=== PATIENT | female | born 2000 | race Caucasian/White ===

== ENCOUNTER 2023-01-21 15:40 | Emergency (ER) | payer OTHER, SELFPAY ==
[2023-01-21 15:47] VITALS: BP 146/78; PULSE 104; RESP 18; TEMP 36.3; O2SAT 100
--- NOTE | 2023-01-21 16:16 | ED.EAR ---
HPI - Ear Problem General Chief complaint: Ear Stated complaint: Ear Pain Source: patient, family and RN notes reviewed History of Present Illness HPI Narrative: 22 yo F presents to urgent care with complaints of a runny nose, cough, and bilateral earache x 2 days. Denies any fevers, chills, chest pain, SOB, N/V/D, or sore throat. Pt states her friend was dx with bronchitis recently and didn't know if she had it. Related Data Allergies Allergy/AdvReac Type Severity Reaction Status Date / Time No Known Allergies Allergy Verified 01/21/23 15:51 Review of Systems Review of Systems: Pertinent positives and pertinent negatives per HPI. PMFSH Comments At the time of my signature, I reviewed and agree with the nursing past medical, surgical, social, and family history. There is no relevant family history pertinent to the patient complaint. Exam Narrative: GENERAL: This is a well-nourished, well-developed patient, in no apparent distress. HEAD: normocephalic, atraumatic. EYES: Sclera clear/white. Vision is grossly intact. EARS: External ears normal, auditory canals clear and without drainage, TMs normal without perforation. Hearing grossly intact. NOSE: External nose normal with no obvious nasal discharge, nares without redness, no rhinorrhea. THROAT: Mucous membranes moist, posterior pharynx clear. NECK: Neck supple, non-tender without lymphadenopathy, masses or thyromegaly. CARDIOVASCULAR: Regular rate and rhythm without murmurs, gallops, or rubs. RESPIRATORY: Clear to auscultation. Breath sounds equal bilaterally. No wheezes, rales, or rhonchi. SKIN: warm, intact with no suspicious lesions or rash, good texture and turgor. NEURO: awake, alert, and oriented to person, place and time. There were no obvious focal neurologic abnormalities. EXTREMITIES: No clubbing, cyanosis, or edema. No joint tenderness, effusion, or edema noted. BACK: Nontender without deformity or crepitus. No flank tenderness. Course Course Level of Care: Express Care Visit Vital Signs Vital signs: Vital Signs Temperature 97.4 F L 01/21/23 15:47 Pulse Rate 104 H 01/21/23 15:47 Respiratory Rate 18 01/21/23 15:47 Blood Pressure 146/78 H 01/21/23 15:47 Pulse Oximetry 100 01/21/23 15:47 Oxygen Delivery Room Air 01/21/23 15:47 Temperature 97.4 F L 01/21/23 15:47 Pulse Rate 104 H 01/21/23 15:47 Respiratory Rate 18 01/21/23 15:47 Blood Pressure 146/78 H 01/21/23 15:47 Pulse Oximetry 100 01/21/23 15:47 Oxygen Delivery Room Air 01/21/23 15:47 reviewed Medical Decision Making MDM Narrative Medical decision making narrative: Viral illness may last between 7-12days; antibiotic is NOT recommended at this time. Recommend antihistamine such as Benadryl at night time and Claritin/Zyrtec/Santa during the day. Increase your Vitamin C intake. Warm baths are comforting for children. Steam from hot showers help with congestion. Also, recommend symptomatic treatment includes: rest, fluids, increase humidity of the air at home with a humidifier in the bedroom. Recommend Acetaminophen or nonsteroidal anti-inflammatory agents(NSAIDs) as directed in the bottle to reduce fever and/pain/headache. Avoid smoking/second-hand smoke. Limit visits to areas with large crowds. Frequent hand washing or hand e [employer] merchant is one of the best ways to prevent spread of infection. Differential Diagnosis Differential Diagnosis: AOM, otitis externa, URI, bronchitis Vital Signs Vital Signs: Vital Signs Temperature 97.4 F L 01/21/23 15:47 Pulse Rate 104 H 01/21/23 15:47 Respiratory Rate 18 01/21/23 15:47 Blood Pressure 146/78 H 01/21/23 15:47 Pulse Oximetry 100 01/21/23 15:47 Oxygen Delivery Room Air 01/21/23 15:47 Temperature 97.4 F L 01/21/23 15:47 Pulse Rate 104 H 01/21/23 15:47 Respiratory Rate 18 01/21/23 15:47 Blood Pressure 146/78 H 01/21/23 15:47 Pulse Oximetry 100 01/21/23 15:47 Oxygen [employer]
== END 2023-01-21 16:24 | disposition home or self-care (01) ==
PROVIDERS: Emergency Provider Nurse Practitioner Family
DX: J06.9 Acute upper respiratory infection, unspecified (principal)
CPT/HCPCS: 99211; G0463

== ENCOUNTER 2023-03-03 19:17 | Emergency (ER) | payer OTHER, SELFPAY ==
[2023-03-03 19:25] VITALS: BP 150/83; PULSE 121; RESP 16; TEMP 37.8; O2SAT 100
--- NOTE | 2023-03-03 19:44 | ED.GENADULT ---
HPI - General Adult General Chief complaint: Upper Respiratory Infection Stated complaint: Headache/Sore Throat/Cough Source: patient Mode of arrival: ambulatory Limitations: no limitations History of Present Illness HPI narrative: Patient presents for evaluation of sick symptoms for last 2 days. Symptoms include headache, sinus congestion, mild ear discomfort bilaterally, sore throat, and cough. Denies any fever, chills, nausea, vomiting or SOB. Her boyfriend with whom she lives recently had similar symptoms. He was seen here and his testing here was negative per his reports. Related Data Home Medications Medication Instructions Recorded Confirmed cyclobenzaprine 10 mg tablet mg 03/03/23 Allergies Allergy/AdvReac Type Severity Reaction Status Date / Time No Known Allergies Allergy Verified 03/03/23 19:20 Review of Systems Review of Systems: CONSTITUTIONAL: Denies fever, chills, or sweats. EYES: Denies visual changes, redness, or discharge. ENT: Reports sinus congestion, sore throat, bilateral otalgia CARDIOVASCULAR: Denies chest pain, palpitations, or edema. RESPIRATORY: Reports cough. GASTROINTESTINAL: Denies abdominal pain, nausea, vomiting, or diarrhea. GENITOURINARY: Denies dysuria or hematuria. SKIN: Denies rash or itching. MUSCULOSKELETAL: Denies back pain, joint pain, or myalgia. NEUROLOGIC: Reports headache. Denies numbness, dizziness, or weakness. PSYCHIATRIC: Denies anxiety or depression. PMFSH Past Medical History Medical History No pertinent past medical history Surgical History Surgical History No pertinent past surgical history Family History Family History Mother Family history non-contributory Social History Social History Other substance usage details: denies Additional living arrangements comments: lives with boyfriend Gender identity (if verbalized by the patient): Female Sexual Orientation (if Verbalized by the Patient): Straight or Heterosexual Spiritual care concerns: No Exam Narrative: GENERAL: Well-appearing, well-nourished, and in no acute distress. HEAD: Normocephalic, atraumatic. EYES: PERRLA and EOMI. ENT: Nares clear, no rhinorrhea or epistaxis. Mucous membranes moist. Oropharynx without tonsillar hypertrophy exudate or other lesions. Bilateral TMs pearly douglas nonbulging NECK: Supple. No adenopathy or masses. No carotid bruits or JVD CHEST: Clear to auscultation. No respiratory distress. No wheezes rales or rhonchi HEART: Rate 110. Normal rhythm. No murmur heard. Normal peripheral pulses. ABDOMEN: Soft, nontender, nondistended, normal active bowel sounds. EXTREMITIES: Normal range of motion. No edema. SKIN: Warm, dry, no rash. NEURO: No focal deficits. Alert and oriented x3. PSYCH: Normal mood and affect. Course Course Emergency Course: This is a 22-year-old female who presented for evaluation of sick symptoms after exposure to a recent viral illness. , influenza, strep all negative. Pt appears well clinically. Heart rate improved. Recommend increase hydration. [id number] agents for symptom management. Follow up with primary provider. Go to the ER for worsening symptoms. Pt in agreement with plan of care. Level of Care: Express Care Visit Vital Signs Vital signs: Vital Signs Temperature 37.8 C H 03/03/23 19:25 Pulse Rate 121 H 03/03/23 19:25 Respiratory Rate 16 03/03/23 19:25 Blood Pressure 150/83 H 03/03/23 19:25 Pulse Oximetry 100 03/03/23 19:25 Oxygen Delivery Room Air 03/03/23 19:25 Temperature 37.8 C H 03/03/23 19:25 Pulse Rate 121 H 03/03/23 19:25 Respiratory Rate 16 03/03/23 19:25 Blood Pressure 150/83 H 03/03/23 19:25 Pulse Oximetry 100
== END 2023-03-03 20:14 | disposition home or self-care (01) ==
PROVIDERS: Emergency Provider Nurse Practitioner
DX: J06.9 Acute upper respiratory infection, unspecified (principal); Z20.822 Contact with and (suspected) exposure to COVID-19
CPT/HCPCS: 87081; 87426; 87804; 87880; 99213; C9803; G0463